=== PATIENT | female | born 1955 | race Two or more races ===

== ENCOUNTER 2019-11-25 08:20 | Outpatient (CLI) | payer OTHER | END 2019-11-25 09:00 | disposition home or self-care (01) | LOC: NUCLEAR 08:20 | DX: M81.0 Age-related osteoporosis without current pathological fracture (principal) ==

== ENCOUNTER → 2020-08-09 | Outpatient (CLI) | payer OTHER | END | disposition home or self-care (01) | LOC: RAD 09:14 | PROVIDERS: ATTEND General Practice | DX: M15.0 Primary generalized (osteo)arthritis (principal); M75.102 Unspecified rotator cuff tear or rupture of left shoulder, not specified as traumatic ==

== ENCOUNTER 2021-03-15 07:34 | Outpatient (CLI) | payer OTHER | END 2021-03-15 07:38 | disposition home or self-care (01) | LOC: RAD 07:34 | PROVIDERS: ATTEND General Practice | DX: M17.0 Bilateral primary osteoarthritis of knee (principal); R07.89 Other chest pain ==

== ENCOUNTER 2021-09-24 08:46 | Outpatient (CLI) | payer OTHER | END 2021-09-24 08:53 | disposition home or self-care (01) | LOC: RAD 08:46 | PROVIDERS: ATTEND General Practice | DX: M15.9 Polyosteoarthritis, unspecified (principal); J44.0 Chronic obstructive pulmonary disease with (acute) lower respiratory infection ==

== ENCOUNTER 2022-12-26 07:35 | Outpatient (CLI) | payer OTHER | END 2022-12-26 07:41 | disposition home or self-care (01) | LOC: RAD 07:35 | PROVIDERS: ATTEND General Practice | DX: M15.9 Polyosteoarthritis, unspecified (principal) ==

== ENCOUNTER 2023-03-26 12:15 | Outpatient (CLI) | payer OTHER | END 2023-03-26 12:16 | disposition home or self-care (01) | LOC: EKG 12:15 → LAB 12:15 | PROVIDERS: ATTEND Ophthalmology | DX: I10 Essential (primary) hypertension (principal); I11.9 Hypertensive heart disease without heart failure ==

== ENCOUNTER 2023-03-26 12:59 | Outpatient (CLI) | payer OTHER | END 2023-03-26 13:06 | disposition home or self-care (01) | LOC: RAD 12:59 | PROVIDERS: ATTEND Ophthalmology | DX: Z98.41 Cataract extraction status, right eye (principal); H25.011 Cortical age-related cataract, right eye ==

== ENCOUNTER → 2023-03-27 08:22 | Outpatient (CLI) | payer OTHER | END | disposition home or self-care (01) | LOC: LAB 08:22 | PROVIDERS: ATTEND Ophthalmology | DX: D68.8 Other specified coagulation defects (principal); H25.013 Cortical age-related cataract, bilateral ==